=== PATIENT | female | born 1980 | race African-American/Black ===

== ENCOUNTER 2017-04-20 01:00 | Inpatient (IN) | payer OTHER ==
[~2017-04-20] VITALS: Ht 165.1 cm; Wt 105.2 kg
--- NOTE | ~2017-04-20 | DS ---
Unit #: [id number] #: [id number] Patient: LIS SUNSHINE [id number] [facility] [address] [place] [address] [id number] MR#: [id number] NAME: LIS SUNSHINE ROOM: P185 Age: 36 Sex: F Admission Date: 04/20/2017 : 1980 Discharge Date: 04/24/2017 Attending Physician: Emilia Aburto M.D. Primary Care Physician: Primary Care Physician No DISCHARGE SUMMARY IDENTIFYING DATA Ms. Lis Sunshine is a 36-year-old single female, who is a resident of [place], [place], and was transferred to us from [facility]. DISCHARGE DIAGNOSES Psychiatric: Major depressive disorder, recurrent, moderate, without psychotic features. Medical: Chronic pain. Stressors: Mild psychosocial stressors. HISTORY OF PRESENT ILLNESS Please see initial psychiatric evaluation for details. PAST PSYCHIATRIC HISTORY Please see initial psychiatric evaluation for details. PAST MEDICAL HISTORY Please see initial psychiatric evaluation for details. HOSPITAL COURSE The [facility] and was oriented to the hospital environment. Routine p.r.n. medications were initiated, and she was started back on her home medications and medications were adjusted and Zoloft was maintained and Wellbutrin was increased to 300 mg in the morning and she was closely monitored. She was polite and pleasant and cooperative with the treatment recommendations and was taking the medications regularly and was tolerating them fairly well and was able to show a decent and therapeutic response with improvement in depression and anxiety and was willing to continue treatment on an outpatient basis and as such, it was decided that she will be kept on her current medications and will be discharged home. DISCHARGE MEDICATIONS Wellbutrin XL 300 mg in the morning for depression and Zoloft 50 mg in the morning for depression. DISCHARGE CONDITION Stable. PROGNOSIS Fair. Unit #: [id number] #: [id number] Patient: LIS SUNSHINE Dictated by... Cain Zimmer/caren TD: 04/24/2017 15:27 JOB #: [id number] DISCHARGE SUMMARY Page 1 of 1 X Emilia Aburto MD SUMMARY
--- NOTE | ~2017-04-20 | PN ---
Unit #: [id number] #: [id number] Patient: STEVE SUNSHINE [id number] [facility] [address] [place] [address] [id number] MR#: [id number] NAME: STEVE SUNSHINE ROOM: 85 Age: 36 Sex: F Admission Date: 04/20/2017 : 1980 Attending Physician: Emilia Aburto M.D. Admitting Physician: Emilia Aburto M.D. Primary Care Physician: Primary Care Physician Betty BAKER PROGRESS NOTES DATE OF SERVICE: 04/23/2017 SUBJECTIVE Ms. Sunshine is a 36-year-old female, who was seen today and chart was reviewed, and case was discussed with the staff. She has been anxious, withdrawn, and rather seclusive to herself, though has been calm and cooperative, who appears to be coming out of the detox without any complications. She has been taking medications and tolerating them fairly well with no reported side effects. MENTAL STATUS EXAMINATION Young female who was casually dressed with fair personal hygiene, appears to be in no acute distress or discomfort. She was awake and alert with intact orientation. Her mood was anxious with a congruent affect. She denies any suicidal or homicidal ideation. Her insight and judgment remain slightly impaired. TREATMENT PLAN 1. We will continue on her current medications and treatment protocol. We will monitor her response to medications and make further adjustments as needed. 2. We will continue to follow up. Dictated by... Cain Zimmer/caren TD: 04/25/2017 03:02 JOB #: [id number] [facility] PROGRESS NOTES Page 1 of 1 X Emilia Aburto MD PROGRESS NOTE
--- NOTE | ~2017-04-20 | PN ---
Unit #: [id number] #: [id number] Patient: STEVE SUNSHINE [id number] [facility] [address] [place] [address] [id number] MR#: [id number] NAME: STEVE SUNSHINE ROOM: [facility] Age: 36 Sex: F Admission Date: 04/20/2017 : 1980 Attending Physician: Emilia Aburto M.D. Admitting Physician: Emilia Aburto M.D. Primary Care Physician: Primary Care Physician Betty JONES NOTES DATE April 21, 2017 DISCUSSION Ms. Sunshine is a 36-year-old female, who was seen today and chart was reviewed and the case was discussed with the staff. She remains anxious, withdrawn, and seclusive to herself, and there appears to be some distress and discomfort, and she tells me she has been taking her medications and tolerating fairly well with no reported side effects. MENTAL STATUS EXAMINATION Young female, who was casually dressed with fair personal hygiene and appears to be in no acute distress or discomfort. She was awake and alert on interaction with intact orientation. Her mood is anxious and depressed with a congruent affect. The patient denies any current suicidal or homicidal ideations. Her insight and judgment remain slightly impaired. TREATMENT PLAN 1. We will continue her on her current medications and treatment protocol, and will monitor her response to the medications, and make further adjustments as needed. 2. We will continue to followup. Dictated by... Cain Zimmer/razia TD: 04/23/2017 12:22 JOB #: [id number] Unit #: [id number] #: [id number] Patient: STEVE SUNSHINE PEATYESHA PROGRESS NOTES Page 1 of 1 X Emilia Aburto MD PROGRESS NOTE
--- NOTE | ~2017-04-20 | CO ---
Unit #: [id number] #: [id number] Patient: STEVE BAHT [id number] [place] [address] [id number] MR#: [id number] NAME: STEVE BHAT ROOM: [facility] Age: 36 Sex: F Admission Date: 04/20/2017 : 1980 Attending Physician: Emilia Aburto M.D. Primary Care Physician: Primary Care Physician No Consultation Date: 04/20/2017 CONSULTATION REPORT Celina is a 36-year-old who was admitted with a "possible thrush." She was seen for her admission H and P on 04/20/2017 and this area was examined and addressed under the H and P. Please see H and P dated 04/20/2017. Dictated by... Anna Campbell P.A.-C. for Cain Benavides/caren TD: 04/21/2017 15:32 JOB #: [id number] CONSULTATION REPORT Page 1 of 1 X Anna Campbell CONSULTATION REPORT
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
--- NOTE | ~2017-04-20 | HP ---
Unit #: [id number] #: [id number] Patient: LIS BHAT [id number] [place] [address] [id number] I MR#: [id number] NAME: LIS BHAT ROOM: P185 Age: 36 Sex: F Admission Date: 04/20/2017 : 1980 Attending Physician: Emilia Aburto M.D. Admitting Physician: Emilia Aburto M.D. Primary Care Physician: Primary Care Physician No HISTORY AND PHYSICAL HISTORY OF PRESENT ILLNESS Lis is a 36 year old admitted to [facility] with depression and after she verbalized in a local emergency room wanting to hurt herself. PAST MEDICAL HISTORY 1. Obesity. 2. History of kidney stones. a. Basket retrieval with stent placement. 3. She was recently diagnosed with strep throat. She has been started on Cleocin 300 mg t.i.d. x10 days. PAST SURGICAL HISTORY 1. Hysterectomy. 2. D and C. 3. Oral. 4. Right knee. ALLERGIES Aspirin, codeine, penicillin. SOCIAL HISTORY She denies cigarettes, alcohol and illicit drug use. FAMILY HISTORY Medically noncontributory. REVIEW OF SYSTEMS CONSTITUTIONAL: No fever or chills. HEENT: Denies any sore throat, ear pain or runny nose. CARDIOVASCULAR: Denies chest pain, irregular heart rhythm or palpitations. CHEST: Denies shortness of breath or cough. No hemoptysis. GASTROINTESTINAL: Denies nausea, vomiting, diarrhea or chronic constipation. ENDOCRINE: Denies history of increased thirst or urination. No recent significant weight loss or gain. GENITOURINARY: Denies dysuria, frequency, or hematuria. SKIN: Denies any rashes. HEMATOLOGIC: Denies history of increased bleeding or bruising. MUSCULOSKELETAL: Denies any hot, swollen joints. No generalized muscle pain. NEUROLOGIC: Denies problems with vision or speech. No frequent, severe headaches. No numbness, tingling or weakness in any extremities. Denies loss of bladder or bowel control. Unit #: [id number] #: [id number] Patient: LIS BHAT CURRENT MEDICATIONS 1. Desyrel 100 mg q.h.s. 2. Zoloft 50 mg q.a.m. 3. Wellbutrin XL 300 mg q.a.m. 4. Percocet 10/325 one tab q. 8 hours p.r.n. 5. Milk of Magnesia p.r.n. 6. Maalox p.r.n. 7. Tylenol p.r.n. 8. Cleocin 300 mg t.i.d. x10 days. PHYSICAL EXAMINATION GENERAL: Alert, well-nourished, in no apparent distress. VITAL SIGNS: Blood pressure 130/92, heart rate 86, respirations 16, temperature 98.6. WEIGHT: 232. HEIGHT: 5 feet 5 inches. SKIN: Warm and dry without rash or lesion. HEENT: Normocephalic. TMs not viewed. Nasal passages clear. Tongue and buccal mucosa are beefy red. No white coating is noted. NECK: Supple without lymphadenopathy or thyromegaly. HEART: Regular rate and rhythm without murmur. LUNGS: Clear. ABDOMEN: Soft, nontender. : Not done. EXTREMITIES: No evidence of cyanosis, clubbing or edema. Moves all without focal deficit. NEUROLOGICAL: Grossly within normal limits. Cranial Nerves: II: Visual wallre are intact. III, IV AND : Extraocular movements are intact. Pupils are equal, round and reactive to light. V: Facial sensation is grossly normal. VII: Facial movements and expression are normal. VIII: Auditory acuity grossly intact. IX, X: Uvula is midline. Phonation is normal. XI: Patient shrugs shoulders and turns head normally. XII: Tongue protrudes in the midline. Sensory and Motor Function: Sensory and motor sensation is grossly normal. Motor: moves all extremities well. Coordination: Gait is normal. Deep Tendon Reflexes: Intact. IMPRESSION 1. Psychiatric admission. 2. Obesity. 3. History of kidney stones. 4. Recent diagnosis of strep throat. She has been started on Cleocin. 5. Stomatitis. PLAN Start nystatin swish and swallow 5 cc t.i.d. x7 days. Would dc Cleocin and start Z-Neil for the strep throat. MEDICAL PROGNOSIS Good. MEDICAL CONDITION Stable. Unit #: [id number] #: [id number] Patient: LIS BHAT Dictated by... Anna Campbell P.A.-C. for Cain Benavides/eddie TD: 04/20/2017 21:17 JOB #: [id number] HISTORY AND PHYSICAL Page 1 of 1 X Anna Campbell HISTORY AND PHYSICAL
--- NOTE | ~2017-04-20 | PN ---
Unit #: [id number] #: [id number] Patient: STEVE SUNSHINE [id number] [facility] [address] [place] [address] [id number] I MR#: [id number] NAME: STEVE SUNSHINE ROOM: [facility] Age: 36 Sex: F Admission Date: 04/20/2017 : 1980 Attending Physician: Emilia Aburto M.D. Admitting Physician: Emilia Aburto M.D. Primary Care Physician: Primary Care Physician Betty JONES NOTES DATE OF SERVICE: 04/22/2017 SUBJECTIVE Ms. Sunshine is a 36-year-old female with mood disorder and substance abuse, who was seen today and chart was reviewed and case was discussed with the staff. She remains anxious, withdrawn, and seclusive to herself and . Meanwhile, she has been taking her current medications and tolerating them fairly well with no reported side effects. MENTAL STATUS EXAMINATION Young female who was casually dressed with fair personal hygiene, appears to be in slight distress and discomfort. She was awake and alert on interaction with intact orientation. Her mood was anxious and depressed with a congruent affect. Her speech was slow and restricted in content. She denies any current suicidal or homicidal ideation and also denies any auditory or visual hallucinations. Her insight and judgment remain slightly impaired. TREATMENT PLAN 1. We will continue on her current medications and treatment protocol. We will monitor her response and make further adjustments as needed. 2. We will continue to follow up. Dictated by... Cain Zimmer/caren TD: 04/25/2017 01:59 JOB #: [id number] Unit #: [id number] #: [id number] Patient: STEVE SUNSHINE PEATYESHA PROGRESS NOTES Page 1 of 1 X Emilia Aburto MD PROGRESS NOTE
[~2017-04-20 01:00] MED LIST: IBUPROFEN800 MG PO
[2017-04-21 09:47] LABS: URINE APPEARANCE TURBID; URINE BLOOD NEG (NEG); URINE COLOR DK YELLOW; URINE GLUCOSE NEG (NEG); URINE KETONE 1+ (NEG); URINE LEUKOCYTE ESTERASE 1+ (NEG); URINE NITRATE NEG (NEG); URINE PROTEIN 1+ (NEG); URINE SPECIFIC GRAVITY 1.034 (1.003-1.035)
[2017-04-21 09:52] LABS: URINE BACTERIA AUWI 1+ (NEGATIVE); URINE SQUAMOUS EPITHELIAL CELL MOD /[HPF]
[2017-04-21 10:22] LABS: AMPHETAMINE NEG (NEG); BARBITURATES NEG (NEG); BENZODIAZEPINES POS (NEG); COCAINE NEG (NEG); MARIJUANA NEG (NEG); OPIATES POS (NEG); TRICYCLIC ANTIDEPRESSANTS POS (NEG); U METHADONE NEG (NEG)
[2017-04-21 10:24] LABS: URINE BILIRUBIN NEG (NEG)
[2017-04-21 10:27] LABS: URINE AMORPHOUS SEDIMENT AMORP URATES
== END 2017-04-24 11:00 | DRG 885 ==
LOC: P1E 02:36
PROVIDERS: Psychiatry & Neurology Psychiatry
DX: F33.1 Major depressive disorder, recurrent, moderate (principal); B37.0 Candidal stomatitis; J02.0 Streptococcal pharyngitis; G89.29 Other chronic pain; Z87.442 Personal history of urinary calculi; E66.9 Obesity, unspecified; Z90.710 Acquired absence of both cervix and uterus; Z88.0 Allergy status to penicillin
CPT/HCPCS: 80307; 81003